=== PATIENT | female | born 1965 | race Caucasian/White ===

== ENCOUNTER 2024-04-27 13:05 | Emergency (ER) | payer OTHER ==
[~2024-04-27] VITALS: Ht 160 cm; Wt 65.8 kg
[2024-04-27 13:18] VITALS: BP 113/77; PULSE 75; RESP 18; TEMP 97.8; O2SAT 95
[2024-04-27 14:02] VITALS: BP 113/77; PULSE 75; RESP 18; TEMP 97.8; O2SAT 95
[2024-04-27 14:18] VITALS: BP 119/68; PULSE 78; RESP 18; O2SAT 96
[2024-04-27 15:06] VITALS: BP 120/73; PULSE 69; RESP 18; O2SAT 95
== END 2024-04-27 15:11 | disposition home or self-care (01) ==
LOC: ER 13:05
DX: S62.102A Fracture of unspecified carpal bone, left wrist, initial encounter for closed fracture (principal); S60.211A Contusion of right wrist, initial encounter; I10 Essential (primary) hypertension; M79.7 Fibromyalgia; J44.89 Other specified chronic obstructive pulmonary disease; Z87.891 Personal history of nicotine dependence; W01.0XXA Fall on same level from slipping, tripping and stumbling without subsequent striking against object, initial encounter; Y93.89 Activity, other specified; Y92.89 Other specified places as the place of occurrence of the external cause; Y99.8 Other external cause status
CPT/HCPCS: 29125; 72170; 99284; 73070-LT; 73110-LT; 73110-RT